=== PATIENT | female | born 1965 | race Caucasian/White ===

== ENCOUNTER 2018-02-27 10:10 | Emergency (ER) | payer MEDICAID, OTHER ==
[~2018-02-27] VITALS: Ht 154.9 cm; Wt 66.2 kg
[~2018-02-27 10:10] MED LIST: INSU3INS6 SUBCUT
[2018-02-27] MEDS ORDERED: TETRACAINE 0.5% OPHTH DROPS 4ML BOTHEYE ONE (13:15)
[2018-02-27] MEDS ORDERED: CLONIDINE 0.1MG TABLET PO ONE (16:15)
[2018-02-27 16:37] LABS: BASOPHILS % 1.5 % (0.0-2.0); EOSINOPHILS % 2.4 % (0.0-5.0); HEMATOCRIT. 28.4 % (36.0-48.0); HEMOGLOBIN. 9.8 g/dL (12.0-16.0); LYMPHOCYTES % 32.7 % (20.0-50.0); MEAN CORPUSCULAR HEMOGLOBIN 29.8 pg (28.0-32.0); MEAN CORPUSCULAR VOLUME 86.4 fL (81.0-99.0); MONOCYTES % 5.2 % (2.0-8.0); NEUTROPHILS % 58.2 % (40.0-76.0); PLATELET 390 x1000/uL (130-400); RED BLOOD CELL COUNT 3.29 mill/uL (4.2-5.4); RED CELL DISTRIBUTION WIDTH 12.8 % (11.6-14.6)
[2018-02-27 17:10] LABS: CHLORIDE 106 mEq/L (98-107)
[2018-02-27] MEDS ORDERED: HYDRALAZINE 20MG/ML VIAL IV ONE (17:30)
[2018-02-27] MEDS ORDERED: CLONIDINE 0.1MG TABLET PO NR (17:30)
[2018-02-27] MEDS ORDERED: METHYLPREDNISOLONE SOD SUCC 125 MG/2 ML VIAL IV ONE (18:00)
[2018-02-28] MEDS ORDERED: IBUPROFEN 800MG TABLET PO ONE
[2018-02-28] MEDS ORDERED: ATOR10TA69 MT (00:03)
[2018-02-28] MEDS ORDERED: ESCI10TA54 MT (00:04)
[2018-02-28] MEDS ORDERED: GLIP10TA10 MT (00:05)
[2018-02-28] MEDS ORDERED: CARV6.2548 MT (00:05)
[2018-02-28] MEDS ORDERED: INSU100I24 SQ (00:06)
[2018-02-28] MEDS ORDERED: FURO40TA5 MT (00:06)
[2018-02-28] MEDS ORDERED: LISI40TA4 MT (00:07)
[2018-02-28 01:18] VITALS: BP 183/75
== END 2018-02-28 01:41 | disposition short-term general hospital (02) ==
LOC: ER 10:10 → SUPCPDRO 17:20 → ER 02-28 01:41
DX: R51 Headache (principal); E11.9 Type 2 diabetes mellitus without complications; I10 Essential (primary) hypertension; E78.00 Pure hypercholesterolemia, unspecified; Z90.49 Acquired absence of other specified parts of digestive tract; Z98.890 Other specified postprocedural states
CPT/HCPCS: 36415; 70450; 70486; 80053; 82962; 83036; 85025; 85651; 96374; 96375; 99285; J0360; J2930; Z7610

== ENCOUNTER 2024-03-03 18:14 | Inpatient (IN) | payer MEDICARE, MEDICAID ==
[~2024-03-03] VITALS: Ht 307.3 cm; Wt 63.5 kg
[~2024-03-03 18:14] MED LIST changes: +ATOR10TA69 MT; +CARV6.2548 MT; +ESCI-7 MT; +FURO40TA5 MT; +GLIP10TA10 MT; +INSU100I24 SQ; +LISI40TA13 MT
[2024-03-03 18:21] VITALS: O2SAT 94
[2024-03-03 19:39] LABS: BASOPHILS % 0.3 % (0.0-2.0); DIFFERENTIAL COMMENT 0; HEMATOCRIT. 39.3 % (36.0-48.0); HEMOGLOBIN. 12.9 g/dL (12.0-16.0); LYMPHOCYTES % 17.1 % (20.0-50.0); MEAN CORPUSCULAR HEMOGLOBIN 30.9 pg (28.0-32.0); MEAN CORPUSCULAR HGB CONC 32.8 g/dL (31.0-37.0); MEAN CORPUSCULAR VOLUME 94.2 fL (81.0-99.0); MEAN PLATELET VOLUME 8.4 fl (7.4-10.4); MONOCYTES % 5.2 % (2.0-8.0); NEUTROPHILS % 77.4 % (40.0-76.0); PLATELET 308 x1000/uL (130-400); RED BLOOD CELL COUNT 4.17 mill/uL (4.2-5.4); RED CELL DISTRIBUTION WIDTH 18.8 % (11.6-14.6)
[2024-03-03 19:42] LABS: CHLORIDE 102 mEq/L (98-107); POTASSIUM 4.7 mEq/L (3.5-5.1)
[2024-03-03 19:43] LABS: CARBON DIOXIDE 31 mEq/L (21-32); SODIUM 139 mEq/L (136-145)
[2024-03-03 19:44] LABS: CALCIUM 10.1 mg/dL (8.7-10.4)
[2024-03-03 19:49] LABS: GLUCOSE 67 mg/dL (70-105); UREA NITROGEN BLOOD 27 mg/dL (9-23)
[2024-03-03 19:50] LABS: ALANINE AMINOTRANSFERASE 41 IU/L (10-49); ALBUMIN 3.9 g/dL (3.2-4.8); ASPARTATE AMINOTRANSFERASE 41 IU/L (<34)
[2024-03-03 19:51] LABS: BILIRUBIN DIRECT 0.2 mg/dL (<=3.0); BILIRUBIN TOTAL 0.4 mg/dL (0.1-1.0); PROTEIN TOTAL 6.3 g/dL (6.0-8.3)
[2024-03-03 20:27] LABS: TROPONIN I HIGH SENSITIVITY 285 ng/L (3.0-34)
[2024-03-03] MEDS: HYDRALAZINE 20MG/ML VIAL IV ONE ×2 (20:52)
[2024-03-03] MEDS: FUROSEMIDE 40MG/4ML VIAL IVP NR (20:52)
[2024-03-03] MEDS ORDERED: GUAIFENESIN 200MG/10ML SUGAR FREE UDC PO PRN (22:15)
[2024-03-03] MEDS ORDERED: DEXTROSE 50% WATER 50ML SYRINGE IV PRN (22:15)
[2024-03-03] MEDS ORDERED: IPRATROPIUM/ALBUTEROL 0.5-3(2.5)MG/3ML NEB HHN PRN (22:15)
[2024-03-03] MEDS ORDERED: ONDANSETRON HCL 4MG/2ML INJ IV PRN (22:15)
[2024-03-03] MEDS ORDERED: DOCUSATE SODIUM 100MG CAPSULE PO PRN (22:15)
[2024-03-03] MEDS: CLONIDINE 0.1MG TABLET PO PRN (22:49)
[2024-03-04] VITALS (11 sets, daily range): BP systolic 170–197; BP diastolic 63–88; PULSE 60–89; RESP 16–18; TEMP 97.1–98.7
[2024-03-04] MEDS: FUROSEMIDE 40MG/4ML VIAL IVP NR (00:22)
[2024-03-04] MEDS: HYDRALAZINE 20MG/ML VIAL IV PRN (00:39)
[2024-03-04] MEDS ORDERED: ATROPINE SULFATE 1MG/ML VIAL IV PRN (00:45)
[2024-03-04] MEDS: AMLODIPINE 10MG TABLET PO SCH (01:19)
[2024-03-04 02:12] LABS: POTASSIUM 5.2 mEq/L (3.5-5.1)
[2024-03-04] MEDS: NITROGLYCERIN OINT 1GM/INCH UDPKT TD SCH (03:38)
[2024-03-04] MEDS: SODIUM POLYSTYRENE SULFONATE 15 G/60 ML BOT PO NR (04:04)
[2024-03-04] MEDS: LISINOPRIL 40MG TABLET PO SCH (04:35)
[2024-03-04] MEDS ORDERED: NITROGLYCERIN OINT 1GM/INCH UDPKT TD SCH (06:00)
[2024-03-04 06:01] LABS: BASOPHILS % 0.9 % (0.0-2.0); EOSINOPHILS % 1.3 % (0.0-5.0); HEMATOCRIT. 39.1 % (36.0-48.0); HEMOGLOBIN. 12.8 g/dL (12.0-16.0); LYMPHOCYTES % 21.4 % (20.0-50.0); MEAN CORPUSCULAR HEMOGLOBIN 31.1 pg (28.0-32.0); MEAN CORPUSCULAR HGB CONC 32.7 g/dL (31.0-37.0); MEAN CORPUSCULAR VOLUME 95.3 fL (81.0-99.0); MEAN PLATELET VOLUME 8.5 fl (7.4-10.4); MONOCYTES % 7.1 % (2.0-8.0); NEUTROPHILS % 69.3 % (40.0-76.0); PLATELET 302 x1000/uL (130-400); WHITE BLOOD COUNT 7.6 x1000/uL (4.5-11.0)
[2024-03-04 06:06] LABS: POTASSIUM 6.1 mEq/L (3.5-5.1)
[2024-03-04 06:07] LABS: CALCIUM 9.2 mg/dL (8.7-10.4)
[2024-03-04 06:12] LABS: CREATININE 4.9 mg/dL (0.6-1.0)
[2024-03-04 06:16] LABS: T4 FREE 1.23 ng/dL (0.89-1.76); THYROID STIMULATING HORMONE 2.92 uIU/mL (0.55-4.78)
[2024-03-04] MEDS ORDERED: AMLODIPINE 10MG TABLET PO SCH (09:00)
[2024-03-04] MEDS: INSULIN LISPRO 100 UNITS/ML SUBCUT SCH (09:20)
[2024-03-04] MEDS: BLOOD SUGAR DIAGNOSTIC STRIP TEST SCH (09:20)
[2024-03-04] MEDS: PANTOPRAZOLE SODIUM 40 MG/VIAL IV SCH (09:24)
[2024-03-04] MEDS: CLONIDINE HCL 0.1MG/24HR PATCH TD NR (10:53)
[2024-03-04 11:18] LABS: HEPATITIS B SURFACE ANTIGEN NEGATIVE (Negative)
[2024-03-04 11:39] LABS: HEPATITIS A AB IGM NEGATIVE (Negative); HEPATITIS B CORE AB IGM NEGATIVE (Negative)
[2024-03-04 11:40] LABS: HEPATITIS C AB NON REACTIVE (Neg) (Negative)
[2024-03-04 16:38] LABS: TROPONIN I HIGH SENSITIVITY 263 ng/L (3.0-34)
[2024-03-04 16:39] LABS: CREATINE KINASE < 15 IU/L (34-145)
[2024-03-04] MEDS: HYDRALAZINE HCL 25MG TABLET PO SCH (21:49)
[2024-03-05] VITALS (8 sets, daily range): BP systolic 141–208; BP diastolic 64–80; PULSE 64–70; RESP 18–20; TEMP 97.7–99
[2024-03-05 06:30] LABS: HEMATOCRIT 41.4 % (36.0-48.0); HEMOGLOBIN 13.4 g/dL (12.0-16.0); MEAN CORPUSCULAR HEMOGLOBIN 30.9 pg (28.0-32.0); MEAN CORPUSCULAR HGB CONC 32.4 g/dL (31.0-37.0); MEAN CORPUSCULAR VOLUME 95.3 fL (81.0-99.0); PLATELET 286 x1000/uL (130-400); RED BLOOD CELL COUNT 4.35 mill/uL (4.2-5.4); RED CELL DISTRIBUTION WIDTH 19.1 % (11.6-14.6); WHITE BLOOD COUNT 5.9 x1000/uL (4.5-11.0)
[2024-03-05 06:32] LABS: CARBON DIOXIDE 28 mEq/L (21-32); CHLORIDE 104 mEq/L (98-107); SODIUM 142 mEq/L (136-145)
[2024-03-05 06:33] LABS: CALCIUM 9.5 mg/dL (8.7-10.4)
[2024-03-05 06:38] LABS: CREATININE 4.5 mg/dL (0.6-1.0); GLUCOSE 111 mg/dL (70-105); UREA NITROGEN BLOOD 27 mg/dL (9-23)
[2024-03-05 06:40] LABS: PHOSPHORUS 3.3 mg/dL (2.5-4.9)
[2024-03-05] MEDS: CLONIDINE HCL 0.2MG/24HR PATCH TD SCH (08:55)
[2024-03-05] MEDS: HYDRALAZINE HCL 100MG TABLET PO SCH (14:00)
[2024-03-05] MEDS: CLONIDINE 0.1MG TABLET PO SCH (21:27)
[2024-03-05] MEDS ORDERED: CLONIDINE 0.1MG TABLET PO SCH (22:00)
[2024-03-06] VITALS (18 sets, daily range): BP systolic 138–203; BP diastolic 54–85; PULSE 60–68; RESP 16–22; TEMP 97.6–98.5
[2024-03-06] MEDS: MINOXIDIL 2.5MG TABLET PO SCH (06:54)
[2024-03-06 07:39] LABS: POTASSIUM 4.1 mEq/L (3.5-5.1)
[2024-03-06 07:40] LABS: CALCIUM 9.7 mg/dL (8.7-10.4)
[2024-03-06 07:45] LABS: HEMATOCRIT 38.1 % (36.0-48.0); HEMOGLOBIN 12.3 g/dL (12.0-16.0); MEAN CORPUSCULAR HGB CONC 32.4 g/dL (31.0-37.0); MEAN CORPUSCULAR VOLUME 95.4 fL (81.0-99.0); PLATELET 287 x1000/uL (130-400); RED BLOOD CELL COUNT 3.99 mill/uL (4.2-5.4); RED CELL DISTRIBUTION WIDTH 19.2 % (11.6-14.6); WHITE BLOOD COUNT 5.9 x1000/uL (4.5-11.0)
[2024-03-06 07:56] LABS: CREATININE 6.4 mg/dL (0.6-1.0)
[2024-03-06] MEDS: FAMOTIDINE 20MG/2ML VIAL IV SCH (08:52)
[2024-03-06] MEDS: CLONIDINE 0.1MG TABLET PO SCH (14:00)
[2024-03-06] MEDS: ACETAMINOPHEN 325MG TABLET PO PRN (14:14)
[2024-03-08] MEDS ORDERED: FAMOTIDINE 20MG TABLET PO SCH (09:00)
== END 2024-03-06 19:20 | disposition home or self-care (01) | DRG 280 ==
LOC: ER 18:14 → 5WST 19:58 → EDBEDREQ 20:29 → EDBEDREQTM 20:29 → 7EST 03-04 17:03
PROVIDERS: ADMIT Hospitalist; ATTEND Hospitalist
PROC: 5A1D70Z Performance of Urinary Filtration, Intermittent, Less than 6 Hours Per Day (ICD-10-PCS; principal; 2024-03-04)
PROC: 5A1D70Z Performance of Urinary Filtration, Intermittent, Less than 6 Hours Per Day (ICD-10-PCS; 2024-03-06)
DX: I16.1 Hypertensive emergency (principal); N18.6 End stage renal disease; I21.4 Non-ST elevation (NSTEMI) myocardial infarction; I13.2 Hypertensive heart and chronic kidney disease with heart failure and with stage 5 chronic kidney disease, or end stage renal disease; E11.649 Type 2 diabetes mellitus with hypoglycemia without coma; I50.9 Heart failure, unspecified; E87.5 Hyperkalemia; E11.22 Type 2 diabetes mellitus with diabetic chronic kidney disease; E78.00 Pure hypercholesterolemia, unspecified; F32.A Depression, unspecified; Z99.2 Dependence on renal dialysis; Z79.899 Other long term (current) drug therapy
CPT/HCPCS: 36415; 71045; 80048; 80061; 80076; 82550; 82962; 83036; 83735; 83880; 84100; 84132; 84439; 84443; 84484; 85025; 85027; 86705; 86709; 87340; 90935; 93005; 93970; 99285; J0360; J1815; J1940; J2470; J3490

== ENCOUNTER 2024-03-31 09:44 | Inpatient (IN) | payer MEDICARE, MEDICAID ==
[~2024-03-31] VITALS: Ht 154.9 cm; Wt 61.2 kg
[2024-03-31 10:08] LABS: BASOPHILS % 1.4 % (0.0-2.0); HEMATOCRIT. 35.8 % (36.0-48.0); HEMOGLOBIN. 11.4 g/dL (12.0-16.0); LYMPHOCYTES % 12.8 % (20.0-50.0); MEAN CORPUSCULAR HEMOGLOBIN 31.3 pg (28.0-32.0); MEAN PLATELET VOLUME 7.9 fl (7.4-10.4); MONOCYTES % 6.2 % (2.0-8.0); NEUTROPHILS % 76.6 % (40.0-76.0); PLATELET 268 x1000/uL (130-400); RED BLOOD CELL COUNT 3.65 mill/uL (4.2-5.4); RED CELL DISTRIBUTION WIDTH 19.1 % (11.6-14.6); WHITE BLOOD COUNT 5.5 x1000/uL (4.5-11.0)
[2024-03-31 10:23] LABS: CHLORIDE 103 mEq/L (98-107); POTASSIUM 4.1 mEq/L (3.5-5.1); SODIUM 141 mEq/L (136-145)
[2024-03-31 10:24] LABS: CALCIUM 9.8 mg/dL (8.7-10.4); CARBON DIOXIDE 31 mEq/L (21-32)
[2024-03-31 10:29] LABS: GLUCOSE 84 mg/dL (70-105); UREA NITROGEN BLOOD 24 mg/dL (9-23)
[2024-03-31 10:31] LABS: ALANINE AMINOTRANSFERASE 51 IU/L (10-49); ALBUMIN 4.1 g/dL (3.2-4.8); ASPARTATE AMINOTRANSFERASE 52 IU/L (<34); BILIRUBIN DIRECT 0.2 mg/dL (<=3.0); BILIRUBIN TOTAL 0.6 mg/dL (0.1-1.0)
[2024-03-31 10:32] LABS: CREATININE 3.4 mg/dL (0.6-1.0); PROTEIN TOTAL 6.8 g/dL (6.0-8.3)
[2024-03-31 10:33] LABS: TROPONIN I HIGH SENSITIVITY 376 ng/L (3.0-34)
[2024-03-31] MEDS ORDERED: ONDANSETRON HCL 4MG/2ML INJ IV PRN (13:30)
[2024-03-31] MEDS ORDERED: IPRATROPIUM/ALBUTEROL 0.5-3(2.5)MG/3ML NEB HHN PRN (13:30)
[2024-03-31] MEDS ORDERED: DOCUSATE SODIUM 100MG CAPSULE PO PRN (13:30)
[2024-03-31] MEDS ORDERED: MAGNESIUM/ALUMINUM HYDROXIDE/SIMETHICONE 30ML UDC PO PRN (13:30)
[2024-03-31] MEDS ORDERED: GUAIFENESIN 200MG/10ML SUGAR FREE UDC PO PRN (13:30)
[2024-03-31] MEDS ORDERED: DEXTROSE 50% WATER 50ML SYRINGE IV PRN (13:45)
[2024-03-31 13:47] LABS: TROPONIN I HIGH SENSITIVITY 364 ng/L (3.0-34)
[2024-03-31] MEDS: HYDRALAZINE 20MG/ML VIAL IV NR (13:52)
[2024-03-31] MEDS ORDERED: NIFE90TA69 PO (13:55)
[2024-03-31] MEDS ORDERED: ASPI-1160 PO (13:55)
[2024-03-31] MEDS ORDERED: VALS160T28 PO (13:55)
[2024-03-31] MEDS ORDERED: AMLO10TA80 PO (13:55)
[2024-03-31] MEDS ORDERED: ASPIRIN 325MG EC TABLET PO NR (14:30)
[2024-03-31] MEDS ORDERED: CLOPIDOGREL 75MG TABLET PO SCH (14:30)
[2024-03-31 15:02] LABS: PHOSPHORUS 3.2 mg/dL (2.5-4.9)
[2024-03-31 18:26] LABS: TROPONIN I HIGH SENSITIVITY 350 ng/L (3.0-34)
[2024-03-31] MEDS: LISINOPRIL 40MG TABLET PO SCH (20:13)
[2024-03-31] MEDS: NIFEDIPINE XL 90MG TAB PO SCH (20:14)
[2024-03-31] MEDS: FUROSEMIDE 40MG TABLET PO SCH (20:14)
[2024-03-31] MEDS: BLOOD SUGAR DIAGNOSTIC STRIP TEST SCH (20:15)
[2024-03-31] MEDS: INSULIN LISPRO 100 UNITS/ML SUBCUT SCH (20:15)
[2024-03-31] MEDS: FAMOTIDINE 20MG TABLET PO SCH (22:42)
[2024-03-31] MEDS: ATORVASTATIN CALCIUM 40MG TABLET PO SCH (22:42)
[2024-03-31] MEDS: HYDRALAZINE 20MG/ML VIAL IV PRN (23:14)
[2024-04-01] MEDS: CLONIDINE 0.1MG TABLET PO PRN (00:09)
[2024-04-01 00:49] LABS: TROPONIN I HIGH SENSITIVITY 346 ng/L (3.0-34)
[2024-04-01] MEDS: CLONIDINE HCL 0.2MG/24HR PATCH TD NR (01:29)
[2024-04-01] MEDS ORDERED: CLONIDINE HCL 0.1MG/24HR PATCH TD NR (01:30)
[2024-04-01 06:40] LABS: CALCIUM 9.9 mg/dL (8.7-10.4)
[2024-04-01 07:03] LABS: BASOPHILS % 2.2 % (0.0-2.0); EOSINOPHILS % 3.4 % (0.0-5.0); HEMATOCRIT. 35.6 % (36.0-48.0); HEMOGLOBIN. 11.4 g/dL (12.0-16.0); LYMPHOCYTES % 16.9 % (20.0-50.0); MEAN CORPUSCULAR HEMOGLOBIN 31.5 pg (28.0-32.0); MEAN CORPUSCULAR VOLUME 98.6 fL (81.0-99.0); MEAN PLATELET VOLUME 8.8 fl (7.4-10.4); MONOCYTES % 6.2 % (2.0-8.0); NEUTROPHILS % 71.3 % (40.0-76.0); PLATELET 274 x1000/uL (130-400); RED BLOOD CELL COUNT 3.61 mill/uL (4.2-5.4); RED CELL DISTRIBUTION WIDTH 19.6 % (11.6-14.6); WHITE BLOOD COUNT 4.7 x1000/uL (4.5-11.0)
[2024-04-01 07:04] LABS: CREATININE 4.9 mg/dL (0.6-1.0); POTASSIUM 6.1 mEq/L (3.5-5.1)
[2024-04-01] MEDS ORDERED: SODIUM POLYSTYRENE SULFONATE 15 G/60 ML BOT PO ONE (08:00)
[2024-04-01] MEDS: ALBUTEROL (0.083%) 2.5MG/3ML NEB HHN NR (08:24)
[2024-04-01] MEDS: SODIUM BICARBONATE 8.4% 50MEQ/50ML SYR IV NR (08:27)
[2024-04-01] MEDS: FUROSEMIDE 100MG/10ML VIAL IV NR (08:27)
[2024-04-01] MEDS ORDERED: FUROSEMIDE 40MG TABLET PO SCH (09:00)
[2024-04-01] MEDS ORDERED: NIFEDIPINE XL 90MG TAB PO SCH (09:00)
[2024-04-01 09:20] VITALS: PULSE 55; RESP 20; O2SAT 98
[2024-04-01] MEDS: NIFEDIPINE XL 60MG TAB PO SCH (09:38)
[2024-04-01] MEDS: ASPIRIN 81MG TABLET PO SCH (09:39)
[2024-04-01] MEDS: SODIUM ZIRCONIUM CYCLOSILICATE 10GM/PACKET PO NR (09:39)
[2024-04-01 11:02] VITALS: BP 183/66; PULSE 62; RESP 20; TEMP 36.2512
[2024-04-01 12:00] VITALS: BP 183/66; PULSE 62; RESP 20; TEMP 36.22512; O2SAT 98
[2024-04-01 12:49] LABS: HEPATITIS B SURFACE ANTIGEN NEGATIVE (Negative)
[2024-04-01 13:10] LABS: HEPATITIS A AB IGM NEGATIVE (Negative)
[2024-04-01 13:11] LABS: HEPATITIS B CORE AB IGM NEGATIVE (Negative); HEPATITIS C AB NON REACTIVE (Neg) (Negative)
[2024-04-01] MEDS: HYDRALAZINE HCL 50MG TABLET PO SCH (15:00)
[2024-04-01 16:00] VITALS: BP 119/53; PULSE 65; RESP 20; TEMP 36.55848; O2SAT 98
[2024-04-01 20:00] VITALS: BP 124/49; PULSE 55; RESP 18; TEMP 36.28068; O2SAT 99
[2024-04-01] MEDS: ACETAMINOPHEN 325MG TABLET PO PRN (20:26)
[2024-04-01] MEDS: NITROGLYCERIN OINT 1GM/INCH UDPKT TD SCH (21:22)
[2024-04-02] VITALS (11 sets, daily range): BP systolic 115–163; BP diastolic 52–71; PULSE 55–69; RESP 18–20; TEMP 36.33624–36.6696; O2SAT 95–99
[2024-04-02 11:46] LABS: T4 FREE 1.08 ng/dL (0.89-1.76)
[2024-04-02 11:47] LABS: THYROID STIMULATING HORMONE 1.99 uIU/mL (0.55-4.78)
[2024-04-02] MEDS ORDERED: NIFE-32 PO (12:35)
[2024-04-02] MEDS ORDERED: GLIP5TAB22 MT (12:35)
[2024-04-02] MEDS ORDERED: HYDR100T11 MT (12:35)
[2024-04-02] MEDS: SODIUM ZIRCONIUM CYCLOSILICATE 10GM/PACKET PO NR (12:36)
[2024-04-02 16:47] LABS: CALCIUM 9.8 mg/dL (8.7-10.4)
[2024-04-02 16:52] LABS: CREATINE KINASE MB FRACTION 1.9 ng/mL (0.5-3.6); CREATININE 4.7 mg/dL (0.6-1.0)
[2024-04-02] MEDS: HYDRALAZINE HCL 100MG TABLET PO SCH (17:37)
[2024-04-03 00:29] VITALS: BP 150/60; PULSE 68; RESP 20; TEMP 36.55848; O2SAT 100
[2024-04-03 01:32] LABS: CREATINE KINASE MB FRACTION 1.3 ng/mL (0.5-3.6)
[2024-04-03 04:00] VITALS: BP 139/55; PULSE 62; RESP 18; TEMP 36.28068; O2SAT 98
[2024-04-03 07:10] LABS: CREATINE KINASE MB FRACTION 1.1 ng/mL (0.5-3.6)
[2024-04-03 08:00] VITALS: BP 155/58; PULSE 63; RESP 20; TEMP 36.16956; O2SAT 98
[2024-04-03 10:36] VITALS: BP 155/58; PULSE 63; TEMP 97.1; O2SAT 98
== END 2024-04-03 12:11 | disposition home or self-care (01) | DRG 637 ==
LOC: ER 10:24 → EDBEDREQ 13:07 → EDBEDREQTM 13:07 → 5WST 18:58 → 8WST 21:47 → 5WST 22:14 → 7WST 04-01 10:43
PROVIDERS: ADMIT Hospitalist; ATTEND Hospitalist
PROC: 5A0935A Assistance with Respiratory Ventilation, Less than 24 Consecutive Hours, High Flow/Velocity Cannula (ICD-10-PCS; 2024-03-31)
PROC: 5A1D70Z Performance of Urinary Filtration, Intermittent, Less than 6 Hours Per Day (ICD-10-PCS; principal; 2024-04-02)
DX: E11.649 Type 2 diabetes mellitus with hypoglycemia without coma (principal); G92.8 Other toxic encephalopathy; J96.01 Acute respiratory failure with hypoxia; I21.A1 Myocardial infarction type 2; I13.2 Hypertensive heart and chronic kidney disease with heart failure and with stage 5 chronic kidney disease, or end stage renal disease; I16.1 Hypertensive emergency; N18.6 End stage renal disease; D63.1 Anemia in chronic kidney disease; T50.995A Adverse effect of other drugs, medicaments and biological substances, initial encounter; E11.22 Type 2 diabetes mellitus with diabetic chronic kidney disease; F32.A Depression, unspecified; R00.1 Bradycardia, unspecified; I1A.0 Resistant hypertension; R90.82 White matter disease, unspecified; E87.5 Hyperkalemia; E78.00 Pure hypercholesterolemia, unspecified; I50.9 Heart failure, unspecified; Z99.2 Dependence on renal dialysis; Z79.4 Long term (current) use of insulin; Z79.82 Long term (current) use of aspirin; Z87.891 Personal history of nicotine dependence; Z79.899 Other long term (current) drug therapy; Y92.89 Other specified places as the place of occurrence of the external cause
CPT/HCPCS: 36415; 71045; 80048; 80061; 80076; 82550; 82553; 82962; 83036; 83735; 83880; 84100; 84439; 84443; 84484; 85025; 85379; 86705; 86709; 87340; 90935; 93005; 93306; 94640; 99291; J0360; J1815; J1940; J3490

== ENCOUNTER 2025-01-14 07:49 | Inpatient (IN) | payer MEDICARE, MEDICAID ==
[~2025-01-14] VITALS: Ht 157.5 cm; Wt 67.1 kg
[~2025-01-14 07:49] MED LIST changes: +ASPI-1160 PO; -CARV6.2548 MT; -ESCI-7 MT; +ESCI-7 PO; -GLIP10TA10 MT; +HYDR100T11 MT; -INSU100I24 SQ; -INSU3INS6 SUBCUT; +LEVO25TA7 PO; +MINO2.5T19 PO; +NIFE90TA60 PO; +NITR0.4T SL
[2025-01-14] MEDS: MORPHINE SULFATE 4 MG/ML INJ (FOR IV/IM USE) IV ONE (08:24)
[2025-01-14] MEDS: DILTIAZEM HCL 60MG TABLET PO ONE (08:55)
[2025-01-14] MEDS: DILTIAZEM HCL 5MG/ML 5ML VIAL IV ONE (08:56)
[2025-01-14 08:59] LABS: BASOPHILS % 1.3 % (0.0-2.0); EOSINOPHILS % 1.8 % (0.0-5.0); HEMATOCRIT. 28.3 % (36.0-48.0); HEMOGLOBIN. 9.4 g/dL (12.0-16.0); LYMPHOCYTES % 18.3 % (20.0-50.0); MEAN CORPUSCULAR HEMOGLOBIN 32.2 pg (28.0-32.0); MEAN CORPUSCULAR HGB CONC 33.3 g/dL (31.0-37.0); MEAN CORPUSCULAR VOLUME 96.9 fL (81.0-99.0); MEAN PLATELET VOLUME 7.4 fl (7.4-10.4); MONOCYTES % 6.4 % (2.0-8.0); NEUTROPHILS % 72.2 % (40.0-76.0); PLATELET 363 x1000/uL (130-400); RED BLOOD CELL COUNT 2.92 mill/uL (4.2-5.4); RED CELL DISTRIBUTION WIDTH 15.7 % (11.6-14.6); WHITE BLOOD COUNT 4.9 x1000/uL (4.5-11.0)
[2025-01-14 09:06] LABS: CHLORIDE 100 mEq/L (98-107); POTASSIUM 3.2 mEq/L (3.5-5.1); SODIUM 143 mEq/L (136-145)
[2025-01-14 09:07] LABS: CARBON DIOXIDE 33 mEq/L (21-32)
[2025-01-14 09:08] LABS: CALCIUM 9.6 mg/dL (8.7-10.4)
[2025-01-14 09:12] LABS: GLUCOSE 139 mg/dL (70-105); UREA NITROGEN BLOOD 15 mg/dL (9-23)
[2025-01-14 09:15] LABS: CREATININE 2.8 mg/dL (0.6-1.0)
[2025-01-14 09:18] LABS: TROPONIN I HIGH SENSITIVITY 571 ng/L (3.0-34)
[2025-01-14] MEDS: ENOXAPARIN 60MG/0.6ML SYR SUBCUT ONE (10:09)
[2025-01-14] MEDS ORDERED: MAGNESIUM/ALUMINUM HYDROXIDE/SIMETHICONE 30ML UDC PO PRN (10:15)
[2025-01-14] MEDS ORDERED: IPRATROPIUM/ALBUTEROL 0.5-3(2.5)MG/3ML NEB HHN PRN (10:15)
[2025-01-14] MEDS ORDERED: ONDANSETRON HCL 4MG/2ML INJ IV PRN (10:15)
[2025-01-14] MEDS ORDERED: DEXTROSE 50% WATER 50ML SYRINGE IV PRN (10:15)
[2025-01-14 11:30] LABS: TROPONIN I HIGH SENSITIVITY 610 ng/L (3.0-34)
[2025-01-14] MEDS: ASPIRIN 81MG TABLET PO SCH (11:51)
[2025-01-14] MEDS: POTASSIUM CHLORIDE 20MEQ TABLET SR PO NR (11:52)
[2025-01-14 11:54] VITALS: BP 120/56; PULSE 59; RESP 20; TEMP 36.6; O2SAT 99
[2025-01-14] MEDS: ENOXAPARIN 30MG/0.3ML SYR SUBCUT SCH (12:30)
[2025-01-14 12:34] VITALS: BP 118/55; PULSE 60; RESP 20; TEMP 36.6
[2025-01-14] MEDS: INSULIN LISPRO 100 UNITS/ML SUBCUT SCH (13:30)
[2025-01-14 13:35] LABS: TROPONIN I HIGH SENSITIVITY 1897 ng/L (3.0-34)
[2025-01-14] MEDS: BLOOD SUGAR DIAGNOSTIC STRIP TEST SCH (13:52)
[2025-01-14 14:07] LABS: BG DEOXYHEMOGLOBIN 4.4 % (0.0-5.0)
[2025-01-14] MEDS: LOSARTAN 100 MG TABLET PO SCH (15:22)
[2025-01-14 15:59] VITALS: BP 134/53; PULSE 59; RESP 20; TEMP 36.7; O2SAT 98
[2025-01-14 16:51] LABS: INR 1.1; PROTHROMBIN TIME 11.8 sec (9.6-11.0)
[2025-01-14] MEDS: ENOXAPARIN 40MG/0.4ML SYR SUBCUT SCH (17:02)
[2025-01-14] MEDS: ACETAMINOPHEN 325MG TABLET PO PRN (18:37)
[2025-01-14 20:00] VITALS: BP 132/59; PULSE 57; RESP 18; TEMP 36.4; O2SAT 97
[2025-01-14] MEDS: ATORVASTATIN CALCIUM 40MG TABLET PO SCH (21:47)
[2025-01-15] VITALS: BP 151/64; PULSE 57; RESP 19; TEMP 36.2; O2SAT 95
[2025-01-15 04:00] VITALS: BP 174/75; PULSE 64; RESP 18; TEMP 36.3; O2SAT 97
[2025-01-15] MEDS: CLONIDINE 0.1MG TABLET PO PRN (04:34)
[2025-01-15 07:46] VITALS: BP 187/68; PULSE 63; RESP 20; TEMP 36.6; O2SAT 95
[2025-01-15 07:54] LABS: EOSINOPHILS % 2.9 % (0.0-5.0); HEMATOCRIT. 27.4 % (36.0-48.0); HEMOGLOBIN. 9.1 g/dL (12.0-16.0); LYMPHOCYTES % 15.9 % (20.0-50.0); MEAN CORPUSCULAR HEMOGLOBIN 32.4 pg (28.0-32.0); MEAN CORPUSCULAR HGB CONC 33.2 g/dL (31.0-37.0); MEAN CORPUSCULAR VOLUME 97.4 fL (81.0-99.0); MEAN PLATELET VOLUME 7.6 fl (7.4-10.4); MONOCYTES % 8.3 % (2.0-8.0); NEUTROPHILS % 71.9 % (40.0-76.0); PLATELET 298 x1000/uL (130-400); RED BLOOD CELL COUNT 2.81 mill/uL (4.2-5.4); RED CELL DISTRIBUTION WIDTH 15.8 % (11.6-14.6); WHITE BLOOD COUNT 4.3 x1000/uL (4.5-11.0)
[2025-01-15 08:01] LABS: POTASSIUM 4.9 mEq/L (3.5-5.1)
[2025-01-15 08:10] LABS: T4 FREE 1.24 ng/dL (0.89-1.76); THYROID STIMULATING HORMONE 3.2 uIU/mL (0.55-4.78)
[2025-01-15 08:52] LABS: TROPONIN I HIGH SENSITIVITY 17131 ng/L (3.0-34)
[2025-01-15] MEDS ORDERED: NITROGLYCERIN 0.4MG TABLET SL SL PRN (09:30)
[2025-01-15] MEDS: NIFEDIPINE XL 30MG TAB PO SCH (09:40)
[2025-01-15] MEDS ORDERED: LIDOCAINE HCL 1% 20ML VIAL ONE (10:14)
[2025-01-15] MEDS ORDERED: IODIXANOL 320MG/ML 100 ML BOTTLE IV ONE ×2 (10:14→11:25)
[2025-01-15] MEDS ORDERED: VERAPAMIL HCL 2.5 MG/1 ML 2ML VIAL IV ONE (10:14)
[2025-01-15] MEDS ORDERED: HEPARIN 1000 UNITS/ML 10ML ONE (10:14)
[2025-01-15] MEDS ORDERED: DIPHENHYDRAMINE 50MG/ML VIAL ONE (10:37)
[2025-01-15] MEDS ORDERED: FENTANYL CITRATE/PF 50MCG/ML 2ML VIAL ONE (10:38)
[2025-01-15] MEDS ORDERED: MIDAZOLAM HCL 2 MG/2 ML VIAL ONE (10:38)
[2025-01-15] MEDS ORDERED: HYDRALAZINE 20MG/ML VIAL ONE (11:28)
[2025-01-15] MEDS ORDERED: LABETALOL 5MG/ML 20ML VIAL IV ONE (11:41)
[2025-01-15 12:00] VITALS: BP 109/86; PULSE 59; RESP 13; TEMP 36.8; O2SAT 100
[2025-01-15] MEDS ORDERED: ATROPINE SULFATE 1MG/10ML SYR IV PRN (12:15)
[2025-01-15] MEDS ORDERED: ACETAMINOPHEN 325MG TABLET PO PRN (12:15)
[2025-01-15 14:34] LABS: HEPATITIS B SURFACE ANTIGEN NEGATIVE (Negative)
[2025-01-15 14:54] LABS: HEPATITIS A AB IGM NEGATIVE (Negative)
[2025-01-15] MEDS: ACETAMINOPHEN 325MG TABLET PO PRN (14:54)
[2025-01-15 14:55] LABS: HEPATITIS B CORE AB IGM NEGATIVE (Negative)
[2025-01-15 14:56] LABS: HEPATITIS C AB NON REACTIVE (Neg) (Negative)
[2025-01-15] MEDS: ISOSORBIDE MONONITRATE 30MG TABLET SR 24HR PO SCH (15:59)
[2025-01-15 16:00] VITALS: BP 163/54; PULSE 57; RESP 14; TEMP 36.6; O2SAT 94
[2025-01-15] MEDS ORDERED: ENOXAPARIN 80MG/0.8ML SYR SUBCUT SCH (17:00)
[2025-01-15] MEDS: FERROUS SULFATE 325MG TABLET PO SCH (17:01)
[2025-01-15] MEDS: PANTOPRAZOLE 40MG DR TABLET PO SCH (17:01)
[2025-01-15 20:00] VITALS: BP 167/68; PULSE 57; RESP 14; TEMP 36.7; O2SAT 96
[2025-01-15] MEDS: APIXABAN 5 MG TABLET PO SCH (22:18)
[2025-01-16] VITALS (10 sets, daily range): BP systolic 107–182; BP diastolic 52–73; PULSE 55–63; RESP 14–20; TEMP 36.50292–36.9; O2SAT 92–96
[2025-01-16] MEDS: HYDRALAZINE 20MG/ML VIAL IV NR (06:31)
[2025-01-16 07:38] LABS: BASOPHILS % 0.8 % (0.0-2.0); EOSINOPHILS % 1.4 % (0.0-5.0); HEMATOCRIT. 26.1 % (36.0-48.0); HEMOGLOBIN. 8.6 g/dL (12.0-16.0); LYMPHOCYTES % 13.4 % (20.0-50.0); MEAN CORPUSCULAR HEMOGLOBIN 32.1 pg (28.0-32.0); MEAN CORPUSCULAR HGB CONC 32.9 g/dL (31.0-37.0); MEAN CORPUSCULAR VOLUME 97.5 fL (81.0-99.0); MEAN PLATELET VOLUME 7.7 fl (7.4-10.4); MONOCYTES % 6.4 % (2.0-8.0); PLATELET 288 x1000/uL (130-400); RED BLOOD CELL COUNT 2.68 mill/uL (4.2-5.4); RED CELL DISTRIBUTION WIDTH 15.8 % (11.6-14.6); WHITE BLOOD COUNT 5.1 x1000/uL (4.5-11.0)
[2025-01-16 07:55] LABS: POTASSIUM 5.7 mEq/L (3.5-5.1)
[2025-01-16 07:56] LABS: CALCIUM 9.4 mg/dL (8.7-10.4)
[2025-01-16] MEDS: NIFEDIPINE XL 60MG TAB PO SCH (09:00)
[2025-01-16] MEDS: ISOSORBIDE MONONITRATE 30MG TABLET SR 24HR PO SCH (10:36)
[2025-01-16] MEDS ORDERED: LOSA100T33 PO (12:25)
[2025-01-16] MEDS ORDERED: APIX5TAB PO (12:25)
[2025-01-16] MEDS ORDERED: ISOS60TA76 PO (12:25)
[2025-01-16] MEDS ORDERED: LIP40 PO (12:25)
[2025-01-16] MEDS ORDERED: PANT40TA51 PO (12:25)
[2025-01-16 19:30] LABS: TROPONIN I HIGH SENSITIVITY 12959 ng/L (3.0-34)
[2025-01-17 01:41] LABS: TROPONIN I HIGH SENSITIVITY 10965 ng/L (3.0-34)
[2025-01-17 08:00] VITALS: BP 184/72; PULSE 62; RESP 12; TEMP 36.9; O2SAT 88; O2SAT 94
[2025-01-17] MEDS: ISOSORBIDE MONONITRATE 60MG TABLET SR 24HR PO SCH (08:38)
[2025-01-17 12:00] VITALS: BP 154/69; PULSE 64; RESP 11; TEMP 33.3; TEMP 36.7; O2SAT 93
[2025-01-17 12:57] LABS: BG BASE EXCESS 5.7 mmol/L (-2.0-3.0); BG DEOXYHEMOGLOBIN 22.8 % (0.0-5.0); BG FRACTION INSPIRED OXYGEN 21; BG HCO3 ACT 29.3 mmol/L (21.0-28.0); BG METHEMOGLOBIN 0.3 % (0.5-1.5); BG OXYGEN SATURATION 76.9 % (94.0-98.0); BG OXYHEMOGLOBIN 75.9 % (94.0-98.0); BG PCO2 38.5 mmHg (32.0-45.0); BG PH 7.499 (7.350-7.450); BG PO2 43.5 mmHg (83.0-108.0); BG SAMPLE SITE RIGHT BRACHIAL; BG TOTAL HEMOGLOBIN 9.6 g/dL (12.0-16.0); BG VENT MODE ROOM AIR
[2025-01-17 15:07] VITALS: BP 176/79; PULSE 64; RESP 14; O2SAT 94
[2025-01-17 16:00] VITALS: BP 158/65; PULSE 66; RESP 15; TEMP 36.4; O2SAT 95
[2025-01-17 16:20] VITALS: BP 158/65; PULSE 66; TEMP 97.6; O2SAT 100
== END 2025-01-17 17:13 | disposition home or self-care (01) | DRG 280 ==
LOC: ER 07:49 → 7WST 09:55 → EDBEDREQ 09:56 → ENRESERV 10:04 → 3WST 01-15 13:21
PROVIDERS: ADMIT Hospitalist; ATTEND Hospitalist
PROC: 4A023N7 Measurement of Cardiac Sampling and Pressure, Left Heart, Percutaneous Approach (ICD-10-PCS; principal; 2025-01-15)
PROC: B211YZZ Fluoroscopy of Multiple Coronary Arteries using Other Contrast (ICD-10-PCS; 2025-01-15)
PROC: B41FYZZ Fluoroscopy of Right Lower Extremity Arteries using Other Contrast (ICD-10-PCS; 2025-01-15)
PROC: B240ZZ3 Ultrasonography of Single Coronary Artery, Intravascular (ICD-10-PCS; 2025-01-15)
PROC: 5A1D70Z Performance of Urinary Filtration, Intermittent, Less than 6 Hours Per Day (ICD-10-PCS; 2025-01-16)
DX: I25.10 Atherosclerotic heart disease of native coronary artery without angina pectoris (principal); G92.9 Unspecified toxic encephalopathy; I21.A1 Myocardial infarction type 2; I50.43 Acute on chronic combined systolic (congestive) and diastolic (congestive) heart failure; N18.6 End stage renal disease; I13.2 Hypertensive heart and chronic kidney disease with heart failure and with stage 5 chronic kidney disease, or end stage renal disease; I48.0 Paroxysmal atrial fibrillation; E11.22 Type 2 diabetes mellitus with diabetic chronic kidney disease; E87.6 Hypokalemia; I1A.0 Resistant hypertension; E78.00 Pure hypercholesterolemia, unspecified; F32.A Depression, unspecified; I27.20 Pulmonary hypertension, unspecified; E61.1 Iron deficiency; E03.9 Hypothyroidism, unspecified; D63.1 Anemia in chronic kidney disease; E11.65 Type 2 diabetes mellitus with hyperglycemia; I15.9 Secondary hypertension, unspecified; I36.1 Nonrheumatic tricuspid (valve) insufficiency; Z79.899 Other long term (current) drug therapy; Z90.49 Acquired absence of other specified parts of digestive tract; Z99.2 Dependence on renal dialysis; Z86.73 Personal history of transient ischemic attack (TIA), and cerebral infarction without residual deficits; Z79.01 Long term (current) use of anticoagulants; Z79.82 Long term (current) use of aspirin
CPT/HCPCS: 36415; 36600; 71045; 80048; 80061; 82375; 82803; 82805; 82962; 83880; 84439; 84443; 84484; 85025; 86705; 86709; 87340; 90935; 92978; 93005; 93458; 93880; 94640; 99291; A4606; C1753; C1769; C1887; C1893; J0360; J1200; J1644; J1650; J1815; J2003; J2250; J2270; J3010; J3490; Q9967

== ENCOUNTER 2025-02-16 18:16 | Emergency (ER) | payer MEDICARE, MEDICAID ==
[~2025-02-16] VITALS: Ht 157.5 cm; Wt 64.0 kg
[~2025-02-16 18:16] MED LIST changes: +APIX5TAB PO; -ATOR10TA69 MT; +CARV6.2548 PO; +FERR-63 PO; +ISOS60TA76 PO; +LIP40 PO; -LISI40TA13 MT; +LOSA100T33 PO; +NIFE-32 PO; +PANT40TA51 PO
[2025-02-16 19:02] VITALS: O2SAT 99
[2025-02-16 19:15] LABS: BASOPHILS % 2.4 % (0.0-2.0); EOSINOPHILS % 1.4 % (0.0-5.0); HEMATOCRIT. 31.2 % (36.0-48.0); HEMOGLOBIN. 9.7 g/dL (12.0-16.0); LYMPHOCYTES % 12.6 % (20.0-50.0); MEAN PLATELET VOLUME 7.7 fl (7.4-10.4); MONOCYTES % 8.9 % (2.0-8.0); NEUTROPHILS % 74.7 % (40.0-76.0); PLATELET 360 x1000/uL (130-400); RED BLOOD CELL COUNT 3.21 mill/uL (4.2-5.4); RED CELL DISTRIBUTION WIDTH 20.5 % (11.6-14.6); UREA NITROGEN BLOOD 26.0 mg/dL (9-23)
[2025-02-16 19:22] LABS: CREATININE 4.5 mg/dL (0.6-1.0)
[2025-02-16 21:11] VITALS: PULSE 72
[2025-02-16] MEDS: MECLIZINE 12.5MG TABLET PO ONE (21:50)
[2025-02-16 22:31] LABS: TROPONIN I HIGH SENSITIVITY 5226 ng/L (3.0-34)
[2025-02-16 22:35] LABS: CLARITY URINE CLOUDY (CLEAR); COLOR URINE YELLOW (YELLOW); GLUCOSE URINE 1+ (NEGATIVE); KETONES URINE NEGATIVE (NEGATIVE); LEUKOCYTE ESTERASE URINE 1+ (NEGATIVE); NITRITE URINE NEGATIVE (NEGATIVE); OCCULT BLOOD URINE NEGATIVE (NEGATIVE); PH URINE >=9.0 (4.5-8.0); PROTEIN URINE 3+ (NEGATIVE); SPECIFIC GRAVITY URINE 1.014 (1.005-1.030); UROBILINOGEN URINE 0.2 E.U./dL (0.2-1.0)
[2025-02-16 22:49] VITALS: BP 157/67; RESP 16; TEMP 36.7; O2SAT 99
[2025-02-16 22:50] LABS: BACTERIA URINE 2+; RBC URINE 0-2 /hpf (0-2); SQUAMOUS EPITHELIAL CELL URINE 2+ /lpf (RARE/1+)
[2025-02-16 22:51] LABS: YEAST URINE 2+
== END 2025-02-16 23:07 | disposition left against medical advice (07) ==
LOC: ER 18:16 → CMPBEDREQ 02-17 08:55
DX: R42 Dizziness and giddiness (principal)
CPT/HCPCS: 99284; 70450; 80048; 81003; 85025; 84484; 36415; 93005; J8597